=== PATIENT | female | born 1985 | race Caucasian/White ===

== ENCOUNTER 2017-12-12 11:31 | Inpatient (IN) | payer BC ==
[2017-12-12] MEDS ORDERED: Dibucaine 1% 28.35 GM TUBE PR PRN (16:25)
[2017-12-12] MEDS ORDERED: Glycerin ADULT SUPP PR PRN (16:25)
[2017-12-12] MEDS ORDERED: Witch Hazel PAD* JAR TOPICAL PRN (16:25)
[2017-12-12] MEDS ORDERED: Acetaminophen TAB* 325 MG PO PRN (16:25)
[2017-12-12] MEDS: Ibuprofen TAB* 600 MG PO PRN (16:52)
[2017-12-12] MEDS ORDERED: Simethicone TAB* 80 MG TAB.CHEW PO SCH (17:30)
[2017-12-12] MEDS: Docusate CAP* 100 MG PO SCH (20:33)
[2017-12-13] MEDS: Ibuprofen TAB* 600 MG PO PRN ×2 (04:13→18:05)
[2017-12-13 06:39] LABS: ABS Basophils 0.1 10^3/ul (0-0.2); ABS Eosinophils 0 10^3/ul (0-0.6); ABS Lymphocytes 1.7 10^3/ul (1.0-4.8); ABS Monocytes 1.1 10^3/ul (0-0.8); ABS Neutrophils 15.1 10^3/ul (1.5-7.7); ABS Nucleated RBC 0 10^3/ul; Eosinophil % 0.2 % (0-6); Hematocrit 31 % (35-47); Hemoglobin 10.7 g/dl (12.0-16.0); Lymphocyte % 9.4 % (25-47); Mean Corpuscular HGB Conc 34 g/dl (31-36); Mean Corpuscular Hemoglobin 32 pg (27-31); Mean Corpuscular Volume 93 fL (80-97); Mean Platelet Volume 9 um3 (7.4-10.4); Nucleated Red Blood Cells % 0; Platelet Count 167 10^3/ul (150-450); Red Blood Count 3.34 10^6/ul (4.0-5.4); Red Cell Distribution Width 14 % (10.5-15)
[2017-12-13] MEDS: Docusate CAP* 100 MG PO SCH ×3 (08:53→20:29)
[2017-12-13] MEDS ORDERED: Ferrous Gluconate TAB* 324 MG TAB PO SCH (09:00)
--- NOTE | 2017-12-13 12:44 | PTEDU ---
Patient Name: LOBITO LOVE LOBITO LOVE selected video: Follow Me Mum: [employer] [facility] Successful to view on 2017 at 12:43:55 PM from [id number]
[2017-12-14] MEDS: Ibuprofen TAB* 600 MG PO PRN ×2 (00:49→08:16)
[2017-12-14 08:07] VITALS: BP 96/56
[2017-12-14] MEDS: Docusate CAP* 100 MG PO SCH (08:17)
== END 2017-12-14 13:05 | disposition home or self-care (01) | DRG 560 ==
LOC: MCHOBOUT 11:31 → MCHOB 11:38
PROVIDERS: ADMIT Midwife; ATTEND Midwife
PROC: 4A1HX4Z Monitoring of Products of Conception, Cardiac Electrical Activity, External Approach (ICD-10-PCS; principal; 2017-12-12)
PROC: 10E0XZZ Delivery of Products of Conception, External Approach (ICD-10-PCS; 2017-12-12)
PROC: 0W8NXZZ Division of Female Perineum, External Approach (ICD-10-PCS; 2017-12-12)
DX: O76 Abnormality in fetal heart rate and rhythm complicating labor and delivery (principal); O63.1 Prolonged second stage (of labor); Z88.8 Allergy status to other drugs, medicaments and biological substances; Z3A.38 38 weeks gestation of pregnancy; Z37.0 Single live birth
CPT/HCPCS: 36415; 85025; A9270-GY